=== PATIENT | male | born 1945 | race Caucasian/White ===

== ENCOUNTER 2020-10-26 10:48 | Outpatient (CLI) | payer BC | END 2020-10-26 23:59 | disposition home or self-care (01) | LOC: RAD 10:48 | PROVIDERS: ATTEND Internal Medicine | DX: Z02.9 Encounter for administrative examinations, unspecified (principal) ==

== ENCOUNTER → 2020-10-26 | Outpatient (CLI) | payer BC | END | disposition home or self-care (01) | LOC: CFH 11:07 | PROVIDERS: ATTEND Internal Medicine | DX: J18.9 Pneumonia, unspecified organism (principal); J98.6 Disorders of diaphragm | CPT/HCPCS: 71046 ==